=== PATIENT | female | born 1955 | race Caucasian/White ===

== ENCOUNTER 2017-07-22 11:58 | Day surgery (SDC) | payer OTHER ==
[2017-07-21 17:46] VITALS: BMI 25.8
[2017-07-22 12:54] LABS: #Eosinphils 0.1 thou/uL (0.0-0.7); #Lymphocytes 2.2 thou/uL (1.20-3.40); #Monocytes 0.6 thou/uL (0.11-0.59); #Neutrophils 5.9 thou/uL (1.40-6.50); %Basophils 0.4 % (0.0-1.0); %Eosinophils 1.5 % (0.0-10.0); %Neutrophils 66.1 % (42.0-75.0); Hemoglobin 14.3 g/dL (12.0-16.0); Mean Corpuscular HGB CONC 33.2 g/dL (32.0-36.0); Mean Corpuscular Hemoglobin 30.8 pg (27.0-31.0); Mean Corpuscular Volume 92.7 fl (81.0-99.0); Mean Platelet Volume 8.8 fL (7.4-10.4); Platelet Count 206 thou/uL (130-400); Red Blood Cell (RBC) Count 4.64 mill/uL (4.20-5.40); White Blood Cell (WBC) Count 8.9 thou/uL (4.8-10.8)
[2017-07-22 13:13] LABS: Anion Gap 12 mmol/L (10-20); BUN (Urea Nitrogen) 16 mg/dL (9.8-20.1); Calc. Creatinine Clearance 91 mL/min (70-130); Calcium 9.9 mg/dL (7.8-10.44); Carbon Dioxide 27 mmol/L (23-31); Chloride 104 mmol/L (98-107); Estimated GFR-MDRD 74; Glucose 100 mg/dL (80-115); Potassium 4.4 mmol/L (3.5-5.1); Sodium 139 mmol/L (136-145)
[2017-07-22] MEDS ORDERED: Midazolam HCl 2 mg/2 ml Vial ONE (13:24)
[2017-07-22] MEDS ORDERED: Fentanyl 100 MCG/2 ML VIAL ONE ×2 (13:24→14:26)
[2017-07-22] MEDS ORDERED: CEFAZOLIN/Water 2 GM/20 ML SYRINGE ONE (13:46)
[2017-07-22] MEDS ORDERED: Ondansetron HCl/PF 4 MG/2 ML Vial ONE ×2 (14:26→15:59)
[2017-07-22] MEDS ORDERED: Metoclopramide HCl 10 MG/2 ML VIAL ONE ×2 (14:26→15:59)
[2017-07-22] MEDS ORDERED: Bacitracin Zinc Ointment 30 gm TUBE ONE (14:42)
[2017-07-22] MEDS ORDERED: Betamet Acet/Betamet Na Ph 30 MG/5 ML VIAL ONE (14:42)
[2017-07-22] MEDS ORDERED: Scopolamine 1.5 mg/72 hour Patch ONE (14:43)
[2017-07-22] MEDS ORDERED: Ropivacaine 0.2% 550 ML 550 ML NERVE BLCK SCH (15:11)
[2017-07-22] MEDS ORDERED: HYDROcodone/Acetaminophen 5/325 mg Tablet PO PRN ×2 (15:11)
[2017-07-22] MEDS ORDERED: Ondansetron HCl/PF 4 MG/2 ML Vial IVP PRN (15:11)
[2017-07-22] MEDS ORDERED: traMADol HCl 50 MG TAB PO PRN ×2 (15:11)
[2017-07-22] MEDS ORDERED: Zolpidem Tartrate 5 MG TAB PO PRN (15:11)
[2017-07-22] MEDS ORDERED: Promethazine HCl 25 MG/ML VIAL IM PRN (15:11)
[2017-07-22] MEDS ORDERED: Fentanyl 100 MCG/2 ML VIAL IV PRN (15:12)
[2017-07-22] MEDS ORDERED: Ropivacaine 0.5% HCl/PF (150 MG/30 ML VIAL) ONE (15:40)
[2017-07-22] MEDS ORDERED: Ropivacaine 0.2% HCl/PF (40 MG/20 ML VIAL) ONE (15:40)
[2017-07-22] MEDS ORDERED: Lidocaine 1% PF 5 ML VIAL ONE (15:59)
[2017-07-22] MEDS ORDERED: Dexamethasone 20 MG/5 ML VIAL ONE (15:59)
[2017-07-22] MEDS ORDERED: PROPOFOL 200 MG/20 ML VIAL ONE (15:59)
[2017-07-22] MEDS ORDERED: ePHEDrine/0.9% NaCl/PF SYRINGE 50 mg/10 ml ONE (15:59)
[2017-07-22] MEDS ORDERED: Ketorolac Tromethamine 30 MG/ML VIAL ONE (18:04)
--- NOTE | 2017-07-22 23:04 | RAD ---
INTRAOPERATIVE FLUOROSCOPY 07/22/17 HISTORY: Renal fracture. COMPARISON: None. FINDINGS: Fluoroscopic images demonstrate a distal radius and ulnar styloid fracture. There is evidence of inte rnal fixation hardware at the level of the distal radius. IMPRESSION: Fluoroscopy as above. POS: [facility]
--- NOTE | 2017-07-22 23:54 | OP ---
DATE OF SURGERY: 07/22/2017 PREOPERATIVE DIAGNOSIS: Displaced 4-part intra-articular fracture distal radius. FINDINGS: Frontal and sagittal plane split of the [place] complex. PROCEDURES PERFORMED: 1. Open reduction and internal fixation four-part distal radius fracture, intra-articular. 2. Bone grafting with cancellous chips from cadaver donated bone. 3. C-arm supervision. ESTIMATED BLOOD LOSS: 20 mL. TOURNIQUET TIME: 81 minutes. Complicated fracture because of four-part sagittal plane split and mul tiple parts frontal plane split. DESCRIPTION OF PROCEDURE: After successful general endotracheal anesthesia, the limb was prepped and draped. The patient had time out done appropriately. Tourniquet was inflated to 250 mmHg pressure. We then gently made zigzag incisions with the distal limb going more radial to spare exposure of an y subcutaneous nerves. We found the flexor carpi radialis, developed interval between it and radial artery identified the pronator quadratus. An L-shaped incision in quadratus was made with the base s till attached on the radial side. We then followed the fracture, gently clean hematoma comminuted th at was marked loss of bone subchondral on the radial styloid portion and saw the sagittal plane split s. We gently performed open reduction using finger pressure, Maynard and then to maintain the sagittal plane split. We placed a K-wire from this was too obliquely from dorsal to palmar. We used this as a joystick to help achieve appropriate tilt and then we placed bone graft underneath this area. Thi s helped with joint leveling. We then used traction and finger pressure, we were able to place 2K wires, one in the frontal plane, trans from styloid into the medial complex and another from the styloid into the shaft. We then had nearly anatomic position to set, we had approximately 8 degrees of dorsal tilt. We chose after placing the remaining bone graft in place, the Synthes low profile distal radius plate , putting it in with the line ended up appropriately, so the screw would be 2 to 3 mm from the articu lar surface, but we placed them in where the four distal screws were placed first, leaving that appro ximately at 1 cm elevation off the bone, knowing this would translate through at least approximately 15 degrees of palmar tilt and when we placed the distal two screws, the proximal three screws, we ach ieved approximately 8 degrees palmar tilt. We maintained a 1-mm radial positive wrist and we had onl y approximately 0.5 mm displacement in any direction. The joint was stable, removed the wires, took final radiographs to include oblique pronator views to make sure it was no screw protruding dorsally. Cancellous screws were used and appeared to be none p rotruded dorsally and not penetrating the joint in either plane. Tourniquet was deflated. The prona tor quadratus interval was closed with a 0 Vicryl in interrupted [id number] fashion. Subcutaneo us closure with combination of running 3-0 Monocryl to close. Hemostasis was excellent. Skin reappr oximated with 4-0 nylon in interrupted mattress pattern. Bulky dressing was applied with no injectio n because of patient had a block along with a general endotracheal anesthesia from [facility]. The splint was applied. She left the operating room without evidence of anesthetic or operative complication.
== END 2017-07-22 19:20 | disposition home or self-care (01) ==
LOC: SDC 11:58
PROVIDERS: ATTEND Orthopaedic Surgery Hand Surgery
PROC: 0PSJ04Z Reposition Left Radius with Internal Fixation Device, Open Approach (ICD-10-PCS; principal; 2017-07-22)
DX: S52.502A Unspecified fracture of the lower end of left radius, initial encounter for closed fracture (principal); F32.9 Major depressive disorder, single episode, unspecified; Z79.899 Other long term (current) drug therapy; Z96.653 Presence of artificial knee joint, bilateral
CPT/HCPCS: 76001; 80048; 85025; A4306; C1713; J0131; J0702; J1100; J1885; J2001; J2250; J2405; J2704; J2765; J2795; J3010

== ENCOUNTER 2017-08-04 08:16 | Outpatient (CLI) | payer OTHER ==
--- NOTE | 2017-08-04 10:48 | CT ---
RIGHT UPPER EXTREMITY CT WITHOUT IV CONTRAST: Date: 08/04/17 HISTORY: 62-year-old female with history of fractured wrist. Injury to both wrists on 07/21/17. FINDINGS: Noncontrast CT examination of the wrist is performed. There are essentially nondisplaced, vertically oriented fractures through the triquetrum involving alicia th the dorsal aspect, as well as the ventral aspect. The scaphoid bone is intact. Scapholunate space is not widened. IMPRESSION: Two vertically oriented fractures, one through the volar aspect and the other through the dorsal aspe ct of the triquetrum. Intact scaphoid and lunate bones. POS: [facility]
== END 2017-08-04 08:17 | disposition home or self-care (01) ==
LOC: SCSCT 08:16
PROVIDERS: ATTEND Orthopaedic Surgery Hand Surgery
DX: S62.001A Unspecified fracture of navicular [scaphoid] bone of right wrist, initial encounter for closed fracture (principal); S62.111A Displaced fracture of triquetrum [cuneiform] bone, right wrist, initial encounter for closed fracture

== ENCOUNTER 2018-11-24 09:08 | Observation (INO) | payer OTHER ==
[2018-11-23 14:43] VITALS: BMI 26.2
[2018-11-24] MEDS ORDERED: Midazolam HCl 2 mg/2 ml Vial ONE (10:41)
[2018-11-24] MEDS ORDERED: Fentanyl 100 MCG/2 ML VIAL ONE ×2 (10:41→11:00)
[2018-11-24] MEDS ORDERED: Lidocaine 1% (PF) 30 ML VIAL ONE (10:56)
[2018-11-24] MEDS ORDERED: Bupivacaine PF 0.5% 30 ML VIAL ONE (10:57)
[2018-11-24] MEDS ORDERED: Sodium Chloride 0.9% 10 ML ONE ×2 (10:57→12:32)
[2018-11-24] MEDS ORDERED: Bacitracin Zinc Ointment 30 gm TUBE ONE ×2 (10:57→12:30)
[2018-11-24] MEDS ORDERED: Ropivacaine 0.2% HCl/PF (40 MG/20 ML VIAL) ONE (11:11)
[2018-11-24] MEDS ORDERED: Ropivacaine 0.5% HCl/PF (150 MG/30 ML VIAL) ONE (11:11)
[2018-11-24] MEDS ORDERED: Zolpidem Tartrate 5 MG TAB PO PRN (11:16)
[2018-11-24] MEDS ORDERED: Promethazine HCl 25 MG/ML VIAL IM PRN (11:16)
[2018-11-24] MEDS ORDERED: HYDROcodone/Acetaminophen 5/325 mg Tablet PO PRN ×2 (11:16)
[2018-11-24] MEDS ORDERED: traMADol HCl 50 MG TAB PO PRN ×2 (11:16)
[2018-11-24] MEDS ORDERED: Ropivacaine 0.2% 550 ML 550 ML NERVE BLCK SCH (11:16)
[2018-11-24] MEDS ORDERED: Ondansetron PF 4 MG/2 ML Vial IVP PRN (11:16)
[2018-11-24] MEDS ORDERED: Ketorolac Tromethamine 30 MG/ML VIAL IVP PRN (11:16)
[2018-11-24] MEDS ORDERED: Sodium Chloride 0.9% 20 ML ONE (12:30)
--- NOTE | 2018-11-24 15:37 | RAD ---
Exam:Intraoperative fluoroscopy HISTORY: Fracture. COMPARISON: None FINDINGS: Single intraoperative fluoroscopic image demonstrates internal fixation plate at the level distal radius and ulna. Exposure: 0.211 mg. 28 seconds IMPRESSION: Intraoperative fluoroscopy as above.
[2018-11-24] MEDS ORDERED: Ketorolac Tromethamine 30 MG/ML VIAL IVP SCH ×2 (16:45→18:00)
[2018-11-24] MEDS ORDERED: Glycopyrrolate 0.2 MG/ML 5 ML SYRINGE ONE (16:57)
[2018-11-24] MEDS ORDERED: Ondansetron PF 4 MG/2 ML Vial ONE (16:57)
[2018-11-24] MEDS ORDERED: Lidocaine 1% PF 5 ML VIAL ONE (16:57)
[2018-11-24] MEDS ORDERED: Ketorolac Tromethamine 30 MG/ML VIAL ONE (16:57)
[2018-11-24] MEDS ORDERED: Dexamethasone 20 MG/5 ML VIAL ONE (16:57)
[2018-11-24] MEDS ORDERED: PROPOFOL 200 MG/20 ML VIAL ONE (16:57)
[2018-11-24] MEDS ORDERED: Ondansetron PF 4 MG/2 ML Vial IV PRN (16:58)
[2018-11-24] MEDS ORDERED: Morphine 4 MG/ML VIAL SLOW IVP PRN (16:58)
[2018-11-24] MEDS ORDERED: Acetaminophen 325 MG TAB PO PRN (16:58)
[2018-11-24] MEDS ORDERED: TETANUS AND DIPHTHERIA TOX/PF 0.5 ML DISP.SYRIN IM SCH (17:00)
[2018-11-24 19:09] LABS: Anion Gap 11 mmol/L (10-20); BUN (Urea Nitrogen) 14 mg/dL (9.8-20.1); Calc. Creatinine Clearance 103 mL/min (70-130); Calcium 8.6 mg/dL (7.8-10.44); Carbon Dioxide 25 mmol/L (23-31); Chloride 105 mmol/L (98-107); Estimated GFR-MDRD 84; Glucose 106 mg/dL (80-115); Potassium 4.2 mmol/L (3.5-5.1); Sodium 137 mmol/L (136-145)
[2018-11-24] MEDS: Vancomycin HCl 1.25 GM in Sodium Chloride 0.9% 250 ML 250 ML IVPB SCH (20:15)
[2018-11-24] MEDS: Aspirin 81 mg Enteric Coated Tablet PO SCH (20:15)
[2018-11-24] MEDS ORDERED: Vancomycin HCl 1 GM in Premix Bag 1 BAG IVPB SCH (21:00)
[2018-11-25 05:33] LABS: ALT (SGPT) 12 U/L (8-55); AST (SGOT) 14 U/L (5-34); Albumin 3.7 g/dL (3.4-4.8); Alkaline Phosphatase 79 U/L (40-150); Anion Gap 10 mmol/L (10-20); BUN (Urea Nitrogen) 15 mg/dL (9.8-20.1); Bilirubin, Total 0.3 mg/dL (0.2-1.2); Calc. Creatinine Clearance 87 mL/min (70-130); Calcium 8.6 mg/dL (7.8-10.44); Carbon Dioxide 28 mmol/L (23-31); Chloride 104 mmol/L (98-107); Estimated GFR-MDRD 69; Glucose 118 mg/dL (80-115); Potassium 4.5 mmol/L (3.5-5.1); Protein, Total 5.7 g/dL (6.0-8.3); Sodium 137 mmol/L (136-145)
[2018-11-25] MEDS: Aspirin 81 mg Enteric Coated Tablet PO SCH (08:43)
[2018-11-25] MEDS: Vancomycin HCl 1.25 GM in Sodium Chloride 0.9% 250 ML 250 ML IVPB SCH (08:43)
[2018-11-25] MEDS ORDERED: Citalopram 20 MG TAB PO SCH (09:00)
[2018-11-25] MEDS ORDERED: Calcium Carbonate + Vit D 1 TAB PO SCH (09:00)
[2018-11-25] MEDS ORDERED: Naproxen 500 MG TAB PO SCH (09:00)
[2018-11-25 11:38] VITALS: BP 119/60; TEMP 98.7
--- NOTE | 2018-11-25 16:22 | OP ---
DATE OF PROCEDURE: 11/24/2018 PREOPERATIVE DIAGNOSES: 1. Left radial shaft fracture through the base of a previous palmar distal radius fracture plate. 2. Left grade 1 open ulnar shaft fracture. 3. Failed orthopedic implant, left distal radius. POSTOPERATIVE DIAGNOSES AND FINDINGS: 1. Left radial shaft fracture through the base of a previous palmar distal radius fracture plate. 2. Left grade 1 open ulnar shaft fracture. 3. Failed orthopedic implant, left distal radius. 4. Marked comminution and a 7 mm open puncture wound with fracture hematoma escaping over the ulnar fracture site. PROCEDURES PERFORMED: 1. Debridement of material associated with open fracture. 2. Debridement of two separate wounds. 3. Radial plate, deep implant removal, middle finger and ring finger. 4. Bone graft with cancellous chips. 5. C-arm supervision. 6. Open reduction and internal fixation of distal radial shaft fracture. 7. Open reduction and internal fixation of ulnar shaft fracture. 8. All elements used were appropriate. SPECIMEN: Synthes distal radius plate was specimen after removal. TOURNIQUET TIME: 2 hours. ESTIMATED BLOOD LOSS: 25 mL. FINDINGS: Very comminuted distal third ulnar fracture. DESCRIPTION OF PROCEDURE: After successful general endotracheal anesthesia, the limb was prepped and draped. The patient had time-out done appropriately. We then had the limb exsanguinated. Time-out was completed, and tourniquet inflated to 250 mmHg pressure. The patient then had a C-arm brought to the field and confirmed that it was comminuted and appeared that it was 6 mm transverse puncture wound just proximal to the wrist joint on the ulnar aspect, maybe coming from the ulnar bone. We then used an old incision of the radius extended proximally by 50% in total of that to expose the plate and the bone. Then, we used a 7 mm incision dorsally with a zigzag pattern to expose superficial ulnar nerve, protected its branches as well as find the plane to expose the ulnar, and radius was also exposed. We then finished debridement of all material associated with open fracture with combination of a curette, [place] blade, rongeur, and then 5 L of Pulsavac on each of the two separate incision and fractures. Once this was done, we then prepared for some type of coverage. We approached the radius first. We had removed the plate and screws, so we curetted each hole, and then reduced the fracture anatomically without malrotation. Holding in full supination, we were able to secure a great alignment using the large 3.5 screw hole set. We were able to achieve appropriate fixation with 8 cortices below and this was without event. Once we had finished that fixation, we then turned our attention to the ulnar side. We did not need bone graft from the radial side. The ulnar side, however, had some soft comminuted bone that could hardly hold the clamp, so we reduced it near anatomically, put the plate on both sides and clamped with [place] clamp. This gave nearly anatomic position on the C-arm. The patient then had the appropriately sized recon plate placed with two holes distal and one proximal along with three holes proximal to the ulna, and we were able to do same drill and measure with screw technique with the 3.5 screws. One screw was placed in a locking mode. The patient then had the tourniquet deflated, we put bone graft in the comminuted section posteriorly, and the patient left the operating room in a bulky dressing with the wound was closed over drain. Hemostasis was obtained without evidence of anesthetic or operative complication. A sugar-tong splint was also applied. Job ID: [id number]
== END 2018-11-25 15:20 | disposition home or self-care (01) ==
LOC: SDC 09:08 → SURG A 17:35
PROVIDERS: ADMIT Orthopaedic Surgery Hand Surgery; ATTEND Orthopaedic Surgery Hand Surgery
PROC: 0PSJ04Z Reposition Left Radius with Internal Fixation Device, Open Approach (ICD-10-PCS; principal; 2018-11-25)
PROC: 0PSL04Z Reposition Left Ulna with Internal Fixation Device, Open Approach (ICD-10-PCS; 2018-11-25)
PROC: 3E0T3BZ Introduction of Anesthetic Agent into Peripheral Nerves and Plexi, Percutaneous Approach (ICD-10-PCS; 2018-11-25)
PROC: 0PR Upper Bones, Replacement (ICD-10-PCS; 2018-11-25)
DX: S52.302A Unspecified fracture of shaft of left radius, initial encounter for closed fracture (principal); S52.252B Displaced comminuted fracture of shaft of ulna, left arm, initial encounter for open fracture type I or II; T84.113A Breakdown (mechanical) of internal fixation device of bone of left forearm, initial encounter; G89.18 Other acute postprocedural pain; F32.5 Major depressive disorder, single episode, in full remission; Z79.1 Long term (current) use of non-steroidal anti-inflammatories (NSAID); Z79.2 Long term (current) use of antibiotics; Z79.899 Other long term (current) drug therapy; Z96.653 Presence of artificial knee joint, bilateral; Z98.890 Other specified postprocedural states; W19.XXXA Unspecified fall, initial encounter
CPT/HCPCS: 36415; 76000; 80048; 80053; 93005; 93010; 96365; 96366; A4306; C1713; G0378; J0690; J1100; J1885; J2001; J2250; J2405; J2704; J2795; J3010; J3370; J3490; J7050; S0020